=== PATIENT | male | born 1955 | race Caucasian/White ===

== ENCOUNTER 2020-08-10 07:38 | Outpatient (CLI) | payer BC, SELFPAY ==
[2020-08-10 09:06] LABS: SARS-CoV-2 RNA PCR Negative (Negative)
== END 2020-08-10 07:39 | disposition home or self-care (01) ==
PROVIDERS: PCP Internal Medicine
DX: Z71.84 Encounter for health counseling related to travel (principal); Z20.822 Contact with and (suspected) exposure to COVID-19
CPT/HCPCS: C9803; U0003; U0005